=== PATIENT | female | born 1970 | race Caucasian/White ===

== ENCOUNTER 2025-05-26 13:47 | Inpatient (IN) | payer OTHER ==
[~2025-05-26] VITALS: Ht 152.4 cm; Wt 62.6 kg
[2025-05-26 13:51] VITALS: O2SAT 100
[2025-05-26 15:18] LABS: HEMATOCRIT. 26.8 % (36.0-48.0); HEMOGLOBIN. 8.8 g/dL (12.0-16.0); MEAN PLATELET VOLUME 7.6 fl (7.4-10.4); PLATELET 382 x1000/uL (130-400); RED BLOOD CELL COUNT 3.00 mill/uL (4.2-5.4); RED CELL DISTRIBUTION WIDTH 16.4 % (11.6-14.6)
[2025-05-26 15:20] LABS: CREATININE 2.3 mg/dL (0.6-1.0); UREA NITROGEN BLOOD 25 mg/dL (9-23)
[2025-05-26] MEDS: DIPHENHYDRAMINE 50MG/ML VIAL IV ONE (15:20)
[2025-05-26] MEDS: METHYLPREDNISOLONE SOD SUCC 125MG/2ML (ACT-O-VIAL) IV ONE (15:20)
[2025-05-26 15:22] LABS: ASPARTATE AMINOTRANSFERASE 24 IU/L (<34); BILIRUBIN DIRECT < 0.1 mg/dL (<=3.0); BILIRUBIN TOTAL 0.3 mg/dL (0.1-1.0); PROTEIN TOTAL 5.7 g/dL (6.0-8.3)
[2025-05-26] MEDS: MORPHINE SULFATE 4 MG/ML INJ (FOR IV/IM USE) IV ONE ×2 (15:33→18:53)
[2025-05-26 15:39] LABS: INR 1.1
[2025-05-26 16:50] LABS: BAND% 1.0 % (1.0-6.0); BASOPHILS % MANUAL 1.0 % (0.0-2.0); EOSINOPHILS % MANUAL 4.0 % (0.0-5.0); LYMPHOCYTES % MANUAL 6.0 % (20.0-60.0); MONOCYTES % MANUAL 3.0 % (2.0-8.0); NEUTROPHILS % MANUAL 85.0 % (45.0-75.0); PLATELET ESTIMATE NORMAL
[2025-05-26] MEDS ORDERED: HYDRALAZINE 20MG/ML VIAL IV ONE (18:30)
[2025-05-26] MEDS: AMLODIPINE 10MG TABLET PO ONE (18:53)
[2025-05-26 19:06] LABS: TROPONIN I HIGH SENSITIVITY 51 ng/L (3.0-34)
[2025-05-26] MEDS: NIFEDIPINE XL 30MG TAB PO ONE (19:06)
[2025-05-26 20:00] VITALS: BP 187/74; PULSE 95; RESP 16; TEMP 36.6; TEMP 36.6404; O2SAT 95
[2025-05-26] MEDS: HYDROCODONE/ACETAMINOPHEN 10/325MG TABLET PO PRN (22:36)
[2025-05-26] MEDS ORDERED: IOHEXOL-300 100 ML BOTTLE ONE (23:13)
[2025-05-27] VITALS: BP 167/67; PULSE 103; RESP 16; TEMP 36.2; O2SAT 95
[2025-05-27] MEDS ORDERED: ONDANSETRON HCL 4MG/2ML INJ IV PRN
[2025-05-27] MEDS ORDERED: IPRATROPIUM/ALBUTEROL 0.5-3(2.5)MG/3ML NEB HHN PRN
[2025-05-27] MEDS ORDERED: ACETAMINOPHEN 325MG TABLET PO PRN
[2025-05-27] MEDS ORDERED: DOCUSATE SODIUM 100MG CAPSULE PO PRN
[2025-05-27] MEDS: DEXT 5%/0.45% NACL 1000ML 1,000 ML IV SCH
[2025-05-27] MEDS ORDERED: HYDRALAZINE 20MG/ML VIAL IV NR (02:00)
[2025-05-27] MEDS: SODIUM BICARBONATE 8.4% 50MEQ/50ML SYR IV NR (02:07)
[2025-05-27 04:00] VITALS: BP 147/48; PULSE 79; RESP 18; TEMP 37.2; O2SAT 96
[2025-05-27] MEDS: HYDRALAZINE HCL 50MG TABLET PO SCH ×2 (06:13→22:21)
[2025-05-27 07:14] LABS: FOLIC ACID (FOLATE) SERUM 8.81 ng/mL (>5.38); TRIOIODOTHYRONINE TOTAL 0.70 ng/ml (0.60-1.81); VITAMIN B12 SERUM 1069 pg/mL (211-911)
[2025-05-27 07:19] LABS: CREATINE KINASE MB FRACTION 2.0 ng/mL (0.5-3.6)
[2025-05-27 07:24] LABS: PHOSPHORUS 5.2 mg/dL (2.5-4.9); T4 FREE 1.05 ng/dL (0.89-1.76)
[2025-05-27 07:40] LABS: ASPARTATE AMINOTRANSFERASE 20 IU/L (<34); BILIRUBIN DIRECT < 0.1 mg/dL (<=3.0); BILIRUBIN TOTAL 0.2 mg/dL (0.1-1.0); CREATININE 2.6 mg/dL (0.6-1.0); LDL CHOLESTEROL 46 mg/dL (5-100); PROTEIN TOTAL 6.2 g/dL (6.0-8.3); TRIGLYCERIDE 70 mg/dL (0-150); UREA NITROGEN BLOOD 32 mg/dL (9-23)
[2025-05-27 07:43] LABS: INR 1.1
[2025-05-27 07:45] LABS: HEMATOCRIT. 29.3 % (36.0-48.0); HEMOGLOBIN. 9.4 g/dL (12.0-16.0); RED BLOOD CELL COUNT 3.24 mill/uL (4.2-5.4); RED CELL DISTRIBUTION WIDTH 16.5 % (11.6-14.6)
[2025-05-27 07:47] LABS: TROPONIN I HIGH SENSITIVITY 42 ng/L (3.0-34)
[2025-05-27 08:00] VITALS: BP 133/60; PULSE 96; RESP 19; TEMP 36.7; O2SAT 100
[2025-05-27] MEDS: FAMOTIDINE 20MG/2ML VIAL IV SCH ×2 (09:00→17:42)
[2025-05-27] MEDS ORDERED: HYDRALAZINE HCL 50MG TABLET PO SCH (09:00)
[2025-05-27] MEDS: ENOXAPARIN 30MG/0.3ML SYR SUBCUT SCH (09:00)
[2025-05-27] MEDS ORDERED: AMLODIPINE 10MG TABLET PO SCH (09:00)
[2025-05-27] MEDS: FUROSEMIDE 40MG/4ML VIAL IVP SCH (09:00)
[2025-05-27] MEDS: CARVEDILOL 3.125 MG TABLET PO SCH (09:27)
[2025-05-27] MEDS: AMLODIPINE 10MG TABLET PO SCH (09:27)
[2025-05-27 12:00] VITALS: BP 155/50; PULSE 85; RESP 18; TEMP 37.1; O2SAT 97
[2025-05-27] MEDS: CLONIDINE 0.1MG TABLET PO PRN (13:00)
[2025-05-27 14:29] LABS: BAND% 2.0 % (1.0-6.0); LYMPHOCYTES % MANUAL 6.0 % (20.0-60.0); NEUTROPHILS % MANUAL 92.0 % (45.0-75.0); PLATELET ESTIMATE INCREASED
[2025-05-27 14:30] LABS: PLATELET 424 x1000/uL (130-400)
[2025-05-27 16:00] VITALS: BP 119/45; PULSE 85; RESP 17; TEMP 36.7; O2SAT 97
[2025-05-27] MEDS: METHYLPREDNISOLONE SOD SUCC 40MG/ML (ACT-O-VIAL) IV SCH (17:42)
[2025-05-27 20:00] VITALS: BP 138/74; PULSE 77; RESP 18; TEMP 36.5; O2SAT 99
[2025-05-27] MEDS: ACETAMINOPHEN 325MG TABLET PO PRN (22:18)
[2025-05-28] VITALS: BP 139/52; PULSE 88; RESP 18; TEMP 36.5; O2SAT 95
[2025-05-28 04:00] VITALS: BP 131/59; PULSE 87; RESP 18; TEMP 36.5; O2SAT 95
[2025-05-28 08:00] VITALS: BP 132/57; PULSE 97; RESP 19; TEMP 36.7; O2SAT 95
[2025-05-28] MEDS ORDERED: NALOXONE HCL 0.4MG/ML VIAL IV PRN (09:15)
[2025-05-28] MEDS: DIPHENHYDRAMINE 25MG CAPSULE PO PRN (11:22)
[2025-05-28] MEDS: HYDROCODONE/ACETAMINOPHEN 10/325MG TABLET PO PRN (11:23)
[2025-05-28] MEDS: HYDRALAZINE 20MG/ML VIAL IV ONE (11:24)
[2025-05-28 12:00] VITALS: BP 135/62; PULSE 95; RESP 19; TEMP 36.7; O2SAT 96
[2025-05-28] MEDS ORDERED: SODIUM BICARBONATE 4.2% 2.5MEQ/5ML VIAL IV ONE (12:54)
[2025-05-28 15:46] LABS: PROTEIN BODY FLUID < 2.0 gm/dL
[2025-05-28 16:00] VITALS: BP 133/49; PULSE 81; RESP 18; TEMP 36.1; O2SAT 98
[2025-05-28] MEDS: CALCIUM ACETATE 667MG CAPSULE PO SCH (17:23)
[2025-05-28] MEDS ORDERED: SODIUM CHLORIDE 0.9% 1,000 ML IV SCH (17:30)
[2025-05-28] MEDS: CALCIUM GLUCONATE 100MG/ML 10ML VIAL IV NR (17:56)
[2025-05-28 20:38] LABS: BODY FLUID MONOCYTES 11 %; BODY FLUID RBC 27 /cu mm (0-2000); BODY FLUID WBC 69 /cu mm (0-200)
[2025-05-28 22:01] LABS: PLATELET 420 x1000/uL (130-400); RED BLOOD CELL COUNT 2.84 mill/uL (4.2-5.4); RED CELL DISTRIBUTION WIDTH 16.7 % (11.6-14.6)
[2025-05-28 22:13] LABS: CREATININE 3.2 mg/dL (0.6-1.0)
[2025-05-28 22:14] LABS: UREA NITROGEN BLOOD 45 mg/dL (9-23)
[2025-05-28 22:15] LABS: LACTATE DEHYDROGENASE 206 IU/L (120-246); PHOSPHORUS 5.4 mg/dL (2.5-4.9)
[2025-05-28] MEDS: METHYLPREDNISOLONE SOD SUCC 40MG/ML (ACT-O-VIAL) IV SCH (23:01)
[2025-05-29] VITALS: BP 121/44; PULSE 70; RESP 16; TEMP 35.9; O2SAT 100
[2025-05-29] MEDS ORDERED: DEXTROSE 50% WATER 50ML SYRINGE IV PRN (01:00)
[2025-05-29] MEDS: INSULIN LISPRO 100 UNITS/ML SUBCUT NR (01:27)
[2025-05-29] MEDS: INSULIN GLARGINE 100 UNITS/ML SUBCUT NR (01:28)
[2025-05-29 04:00] VITALS: BP 133/47; PULSE 80; RESP 17; TEMP 36.7; O2SAT 98
[2025-05-29 06:13] LABS: CREATININE 3.2 mg/dL (0.6-1.0)
[2025-05-29 06:15] LABS: UREA NITROGEN BLOOD 46 mg/dL (9-23)
[2025-05-29 06:16] LABS: PHOSPHORUS 5.0 mg/dL (2.5-4.9)
[2025-05-29 06:38] LABS: PLATELET 368 x1000/uL (130-400); RED BLOOD CELL COUNT 2.74 mill/uL (4.2-5.4); RED CELL DISTRIBUTION WIDTH 17.2 % (11.6-14.6)
[2025-05-29] MEDS: BLOOD SUGAR DIAGNOSTIC STRIP TEST SCH (06:53)
[2025-05-29] MEDS: INSULIN LISPRO 100 UNITS/ML SUBCUT SCH (06:53)
[2025-05-29 08:00] VITALS: BP 154/59; PULSE 78; RESP 18; TEMP 36.4; O2SAT 96
[2025-05-29] MEDS: INSULIN GLARGINE 100 UNITS/ML SUBCUT SCH (08:50)
[2025-05-29 12:00] VITALS: BP 146/57; PULSE 80; RESP 18; TEMP 36.4; O2SAT 97
[2025-05-29 13:36] LABS: CLARITY URINE CLEAR (CLEAR); COLOR URINE YELLOW (YELLOW); GLUCOSE URINE 1+ (NEGATIVE); KETONES URINE 1+ (NEGATIVE); LEUKOCYTE ESTERASE URINE NEGATIVE (NEGATIVE); NITRITE URINE NEGATIVE (NEGATIVE); OCCULT BLOOD URINE 1+ (NEGATIVE); PH URINE 5.5 (4.5-8.0); PROTEIN URINE 4+ (NEGATIVE); SPECIFIC GRAVITY URINE 1.042 (1.005-1.030); UROBILINOGEN URINE 0.2 E.U./dL (0.2-1.0)
[2025-05-29 13:54] LABS: SODIUM URINE RANDOM 82.0 mEq/L
[2025-05-29 14:01] LABS: CREATININE URINE RANDOM 87.2 mg/dL; UREA NITROGEN URINE RANDOM 395.0 mg/dL
[2025-05-29 14:26] LABS: SQUAMOUS EPITHELIAL CELL URINE 1+ /lpf (RARE/1+); YEAST URINE 2+
[2025-05-29 14:27] LABS: BACTERIA URINE 1+
[2025-05-29 14:28] LABS: RBC URINE NONE SEEN /hpf (0-2); WBC URINE NONE SEEN /hpf (0-2)
[2025-05-29 15:27] LABS: OSMOLALITY URINE 509.0 mOsm/kg (500-850)
[2025-05-29 16:00] VITALS: BP 119/36; PULSE 85; RESP 18; TEMP 36.4; O2SAT 99
[2025-05-29] MEDS ORDERED: HYDR-4001 MT (16:48)
[2025-05-29 17:20] VITALS: BP 119/36; PULSE 85; RESP 18; TEMP 97.5
[2025-05-29] MEDS: MORPHINE SULFATE 2 MG/ML INJ (NOT FOR IM USE) IV SCH (21:16)
[2025-05-30] VITALS: BP 139/93; PULSE 82; RESP 17; TEMP 36.6; O2SAT 96
[2025-05-30 04:00] VITALS: BP 140/44; PULSE 77; RESP 15; TEMP 36.8; O2SAT 96
[2025-05-30 07:44] LABS: PLATELET 453 x1000/uL (130-400); RED BLOOD CELL COUNT 3.21 mill/uL (4.2-5.4); RED CELL DISTRIBUTION WIDTH 16.0 % (11.6-14.6)
[2025-05-30 07:57] LABS: CREATININE 2.7 mg/dL (0.6-1.0); UREA NITROGEN BLOOD 42 mg/dL (9-23)
[2025-05-30 07:59] LABS: PHOSPHORUS 3.4 mg/dL (2.5-4.9)
[2025-05-30 08:00] VITALS: BP 142/52; RESP 18; TEMP 36.7; O2SAT 96
[2025-05-30] MEDS: TACROLIMUS 1MG CAPSULE PO SCH (09:00)
[2025-05-30] MEDS: MYCOPHENOLATE MOFETIL 250MG CAPSULE PO SCH (09:01)
[2025-05-30] MEDS: ERGOCALCIFEROL 50000UNITS CAPSULE PO SCH (11:57)
[2025-05-30 16:00] VITALS: BP 144/41; PULSE 87; RESP 20; TEMP 37.4; O2SAT 99
[2025-05-30 20:00] VITALS: BP 143/42; PULSE 89; RESP 17; TEMP 36.2; O2SAT 98
[2025-05-30] MEDS: SODIUM CHLORIDE 0.9% 1,000 ML IV SCH (21:30)
[2025-05-31] VITALS: BP 165/59; PULSE 88; RESP 18; TEMP 36.6; O2SAT 100
[2025-05-31 04:00] VITALS: BP 121/41; PULSE 89; RESP 17; TEMP 36.1; O2SAT 96
[2025-05-31 08:04] LABS: PLATELET 449 x1000/uL (130-400); RED BLOOD CELL COUNT 3.30 mill/uL (4.2-5.4); RED CELL DISTRIBUTION WIDTH 16.2 % (11.6-14.6)
[2025-05-31 08:25] LABS: CREATININE 2.4 mg/dL (0.6-1.0); UREA NITROGEN BLOOD 41 mg/dL (9-23)
[2025-05-31 08:27] LABS: PHOSPHORUS 3.1 mg/dL (2.5-4.9)
[2025-05-31 10:37] VITALS: BP 156/50
[2025-05-31 12:00] VITALS: BP 160/44; PULSE 83; RESP 18; TEMP 36.4; O2SAT 96
[2025-05-31 16:00] VITALS: BP 155/50; PULSE 80; RESP 17; TEMP 36.4; O2SAT 98
== END 2025-05-31 20:00 | disposition home health service (06) | DRG 811 ==
LOC: ER 14:17 → 5WST 18:13 → EDBEDREQ 18:28 → EDBEDREQTM 18:28 → ENRESERV 19:07 → 7EST 05-31 11:40
PROVIDERS: ADMIT Internal Medicine; ATTEND Internal Medicine
PROC: 0W993ZZ Drainage of Right Pleural Cavity, Percutaneous Approach (ICD-10-PCS; principal; 2025-05-28)
DX: T78.3XXA Angioneurotic edema, initial encounter (principal); N17.0 Acute kidney failure with tubular necrosis; I21.A1 Myocardial infarction type 2; E83.39 Other disorders of phosphorus metabolism; E83.51 Hypocalcemia; E11.22 Type 2 diabetes mellitus with diabetic chronic kidney disease; D64.9 Anemia, unspecified; E78.5 Hyperlipidemia, unspecified; E87.5 Hyperkalemia; T42.6X5A Adverse effect of other antiepileptic and sedative-hypnotic drugs, initial encounter; K12.2 Cellulitis and abscess of mouth; E87.8 Other disorders of electrolyte and fluid balance, not elsewhere classified; I12.9 Hypertensive chronic kidney disease with stage 1 through stage 4 chronic kidney disease, or unspecified chronic kidney disease; J90 Pleural effusion, not elsewhere classified; I16.0 Hypertensive urgency; E11.51 Type 2 diabetes mellitus with diabetic peripheral angiopathy without gangrene; I16.9 Hypertensive crisis, unspecified; N18.9 Chronic kidney disease, unspecified; Z89.512 Acquired absence of left leg below knee; Z79.4 Long term (current) use of insulin; Z79.82 Long term (current) use of aspirin; Z88.8 Allergy status to other drugs, medicaments and biological substances; Y92.89 Other specified places as the place of occurrence of the external cause
CPT/HCPCS: 32555; 36415; 70491; 71045; 76604; 80048; 80061; 80076; 80197; 81003; 82306; 82550; 82553; 82570; 82607; 82728; 82746; 82962; 83036; 83540; 83550; 83605; 83615; 83735; 83880; 83930; 83935; 83970; 84100; 84145; 84300; 84439; 84443; 84480; 84484; 84540; 85025; 85027; 86060; 86850; 86900; 87106; 92610; 93005; 93976; 96374; 96375; 97161; 97166; 99291; A4606; J0360; J0612; J1200; J1308; J1650; J1815; J1938; J2270; J2919; J3490; J7030; J7507; J7517; Q0163; Q9967